=== PATIENT | male | born 1995 | race African-American/Black ===

== ENCOUNTER 2018-01-08 10:47 | Emergency (ER) | payer SELFPAY ==
[~2018-01-08] VITALS: Ht 165.1 cm; Wt 65.0 kg
[2018-01-08 17:45] VITALS: BP 102/60
== END 2018-01-08 18:05 | disposition home or self-care (01) ==
LOC: ER 17:07
DX: S00.83XA Contusion of other part of head, initial encounter (principal); V89.2XXA Person injured in unspecified motor-vehicle accident, traffic, initial encounter; Y93.89 Activity, other specified; Y92.89 Other specified places as the place of occurrence of the external cause; Y99.8 Other external cause status
CPT/HCPCS: 99283